=== PATIENT | female | born 1960 | race Caucasian/White ===

== ENCOUNTER 2023-05-20 12:24 | Emergency (ER) | payer MEDICAID ==
[~2023-05-20] VITALS: Ht 170.2 cm; Wt 98.4 kg
[2023-05-20 14:00] VITALS: BP 171/89; TEMP 98.2; O2SAT 99
[2023-05-20] MEDS ORDERED: BACI/NEOM/POLY B OINT PKT 1 UDPKT PACKET TP ONE (14:00)
== END 2023-05-20 14:02 | disposition home or self-care (01) ==
LOC: ER 12:35
DX: S90.861A Insect bite (nonvenomous), right foot, initial encounter (principal); I83.93 Asymptomatic varicose veins of bilateral lower extremities; I10 Essential (primary) hypertension; E11.9 Type 2 diabetes mellitus without complications; W57.XXXA Bitten or stung by nonvenomous insect and other nonvenomous arthropods, initial encounter; Y93.89 Activity, other specified; Y92.89 Other specified places as the place of occurrence of the external cause; Y99.8 Other external cause status
CPT/HCPCS: 93970-TC